=== PATIENT | female | born 1945 | race Caucasian/White ===

== ENCOUNTER 2018-02-08 15:29 | Emergency (ER) | payer MEDICARE, BC ==
[~2018-02-08] VITALS: Ht 167.6 cm; Wt 80.7 kg
[2018-02-08] MEDS ORDERED: AUGMENTIN 875875 MG PO (16:25)
== END 2018-02-08 16:45 | disposition home or self-care (01) ==
LOC: ED 15:29
DX: S80.872A Other superficial bite, left lower leg, initial encounter (principal); Z88.2 Allergy status to sulfonamides; Z88.1 Allergy status to other antibiotic agents; Z91.018 Allergy to other foods; W54.0XXA Bitten by dog, initial encounter; Y93.H2 Activity, gardening and landscaping; Y92.096 Garden or yard of other non-institutional residence as the place of occurrence of the external cause; Y99.8 Other external cause status

== ENCOUNTER → 2019-03-03 | Outpatient (CLI) | payer MEDICARE, BC ==
[~2019-03-03] MED LIST: AUGMENTIN 875875 MG PO
[2019-03-03 13:18] LABS: BASO % 0.3 % (0.0-1.0); EOS # 0.1 10*3/uL (0.0-0.4); EOS % 1.9 % (1.0-4.0); HEMATOCRIT 35.4 % (37.0-47.0); HEMOGLOBIN 11.5 g/dl (12.0-16.0); LYMPH # 1.4 10*3/uL (1.3-4.4); LYMPH % 19.4 % (27.0-41.0); MEAN CELL VOLUME 88.3 fl (81.0-99.0); MEAN CORPUSCULAR HGB 28.7 pg (27.0-31.0); MEAN CORPUSCULAR HGB CONC 32.5 g/dl (33.0-37.0); MONO # 0.5 10*3/uL (0.1-1.0); MONO % 7.3 % (3.0-9.0); NEUT # 5.3 10*3/uL (2.3-7.9); NEUT % 70.7 % (47.0-73.0); PLATELET COUNT AUTOMATED 210 10*3/uL (130-400); RED BLOOD COUNT 4.01 10*6/uL (4.10-5.10); RED CELL DISTRI WIDTH 12.6 % (0-14.5); WHITE BLOOD COUNT 7.4 10*3/uL (4.8-10.8)
[2019-03-03 13:50] LABS: ALBUMIN 4.1 gm/dl (3.1-4.5); CREATININE 1.15 mg/dL (0.55-1.02); FREE T4 0.99 ng/dl (0.76-1.46); POTASSIUM 4.4 mmol/L (3.5-5.1); TOTAL PROTEIN 7.7 gm/dL (6.4-8.2)
[2019-03-03 13:54] LABS: THYROID STIM HORMONE (HS) 3.31 uIU/ml (0.358-4.75)
[2019-03-03 15:58] LABS: VITAMIN D, 25-HYDROXY 105.1 ng/mL (30-100)
== END | disposition home or self-care (01) ==
LOC: LAB 12:06
PROVIDERS: Internal Medicine
DX: E11.9 Type 2 diabetes mellitus without complications (principal); E78.2 Mixed hyperlipidemia; E55.9 Vitamin D deficiency, unspecified; D51.9 Vitamin B12 deficiency anemia, unspecified; D52.9 Folate deficiency anemia, unspecified